=== PATIENT | female | born 1965 | race Asian ===

== ENCOUNTER 2018-10-24 06:19 | Day surgery (SDC) | payer OTHER ==
[~2018-10-24] VITALS: Ht 157.5 cm; Wt 46.7 kg
[2018-10-24 06:44] VITALS: BP 130/86
[2018-10-24 09:52] VITALS: BP 122/62
== END 2018-10-24 09:40 | disposition home or self-care (01) ==
LOC: DS 06:19
PROVIDERS: Obstetrics & Gynecology
PROC: 0UDB7ZZ Extraction of Endometrium, Via Natural or Artificial Opening (ICD-10-PCS; principal; 2018-10-24 07:30)
DX: N87.0 Mild cervical dysplasia (principal); N84.1 Polyp of cervix uteri; N95.0 Postmenopausal bleeding
CPT/HCPCS: C1758; J3010